=== PATIENT | female | born 1970 | race Caucasian/White ===

== ENCOUNTER 2020-09-24 13:43 | Emergency (ER) | payer BC ==
[2020-09-24] MEDS ORDERED: predniSONE 20 MG Tab PO STA (14:34)
--- NOTE | 2020-09-24 14:34 | EDM.PDOC ---
ED HPI GENERAL MEDICAL PROBLEM - General Chief Complaint: Respiratory Problem Stated Complaint: Dyspnea Time Seen by Provider: 09/24/20 13:50 Source of Information: Reports: Patient History Limitations: Reports: No Limitations - History of Present Illness INITIAL COMMENTS - FREE TEXT/NARRATIVE: Patient presented to the ED because of left rib pain for months which has been worse lately. the pain is pleuritic in type, 5/10. For the past week she also have headache, dry cough, sore throat, N/V/D. there is no fever or chills. She was tested twice for the covid which was negative. 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: Musculoskeletal History: Reports: Back Pain, Chronic Neurological History: Reports: Concussion, Headaches, Chronic, Migraines Psychiatric History: Reports: Anxiety - Past Surgical History HEENT Surgical History: Reports: Tonsillectomy Female Surgical History: Reports: Hysterectomy Musculoskeletal Surgical History: Reports: Other (See Below) Other Musculoskeletal Surgeries/Procedures:: Back surgery x4 Social & Family History - Tobacco Use Tobacco Use Status *Q: Current Some Day Tobacco User Years of Tobacco use: 30 Packs/Tins Daily: 0.1 - Caffeine Use Caffeine Use: Reports: Soda - Recreational Drug Use Recreational Drug Use: No ED ROS GENERAL - Review of Systems Review Of Systems: See Below Constitutional: Reports: No Symptoms HEENT: Reports: No Symptoms Respiratory: Reports: Shortness of Breath, Cough Cardiovascular: Reports: No Symptoms Endocrine: Reports: No Symptoms GI/Abdominal: Reports: No Symptoms : Reports: No Symptoms Musculoskeletal: Reports: No Symptoms Skin: Reports: No Symptoms Neurological: Reports: No Symptoms Psychiatric: Reports: No Symptoms Hematologic/Lymphatic: Reports: No Symptoms ED EXAM, GENERAL - Physical Exam Exam: See Below Exam Limited By: No Limitations General Appearance: Alert, No Apparent Distress Ears: Normal External Exam Nose: Normal Inspection, Normal Mucosa Throat/Mouth: Normal Inspection, Normal Lips, Normal Teeth Head: Atraumatic, Normocephalic Respiratory/Chest: No Respiratory Distress, Lungs Clear, Normal Breath Sounds, Other (tenderness left rib) Cardiovascular: Normal Peripheral Pulses, Regular Rate, Rhythm, No Edema GI/Abdominal: Normal Bowel Sounds, Soft, Non-Tender Extremities: Normal Inspection, Normal Range of Motion Neurological: Alert, Oriented, CN II-XII Intact Course - Vital Signs Text/Narrative:: Labs/EKG/CXR was discussed with patient EKG-NSR Trop-neg D-dimer -neg Prednisone 40 mg PO x1 Last Recorded V/S: Last Vital Signs Temp 36.4 C 09/24/20 13:45 Pulse 75 09/24/20 13:45 Resp 18 09/24/20 13:45 BP 124/90 09/24/20 13:45 Pulse Ox 100 09/24/20 13:45 - Orders/Labs/Meds Orders: Active Orders 24 hr Category Date Time Status EKG Documentation Completion [RC] ASDIRECTED Care 09/24/20 13:59 Active Chest 1V Frontal [CR] Stat Exams 09/24/20 13:58 Taken EKG 12 Lead [EK] Routine Ther 09/24/20 13:58 Ordered Labs: Laboratory Tests 09/24/20 09/24/20 09/24/20 Range/Units 14:24 14:24 14:24 WBC 7.9 (3.0-10.3) x10-3/uL RBC 4.66 (3.60-5.20) x10(6)uL Hgb 14.5 (11.4-15.5) g/dL Hct 43.6 (34.2-48.2) % MCV 93.5 (76.7-100.5) fL MCH 31.0 (23.9-33.9) pg MCHC 33.2 (31.9-34.8) g/dL RDW 13.3 (12.3-16.5) % Plt Count 278 (151-488) x10(3)uL MPV 8.3 (7.1-12.4) fL Neut % (Auto) 52.3 (30.8-76.2) % Lymph % (Auto) 41.3 (18.4-52.1) % [place] % (Auto) 5.6 (4.4-15.7) % Eos % (Auto) 0.5 L (0.6-8.1) % Baso % (Auto) 0.3 (0.2-1.5) % Neut # (Auto) 4.1 (1.5-6.3) x10-3/uL Lymph # (Auto) 3.3 (1.0-4.4) x10-3/uL [place] # (Auto) 0.4 (0.3-1.0) x10-3/uL Eos # (Auto) 0.0 (0.0-0.8) x10-3/uL Baso # (Auto) 0.0 (0.0-0.1) x10-3/uL D-Dimer, Quantitative 0.29 (0.0-0.59) mg/LFEU Sodium 139 (135-145) mmol/L Potassium 4.4 (3.5-5.3) mmol/L Chloride 102 (100-110) mmol/L Carbon Dioxide 30 (21-32) mmol/L BUN 12 (7-18) mg/dL Creatinine 1.1 H (0.55-1.02) mg/dL Est Cr Clr Drug Dosing 61.72 mL/min Estimated GFR (MDRD) 53 L (>60) BUN/Creatinine Ratio 10.9 (9-20) Glucose 100 (80-116) mg/dL Calcium 9.3 (8.6-10.2) mg/dL Total Bilirubin 0.6 (0.1-1.3) mg/dL AST 15 (5-25) IU/L ALT 17 (12-36) U/L Alkaline Phosphatase 81 (56-112) IU/L Troponin I (4.0-60.3) pg/mL NT-Pro-B Natriuret Pep (<=125) pg/mL Total Protein 8.2 H (6.0-8.0) g/dL Albumin 4.1 (3.5-5.2) g/dL Globulin 4.1 g/dL Albumin/Globulin Ratio 1.0 09/24/20 Range/Units 14:24 WBC (3.0-10.3) x10-3/uL RBC (3.60-5.20) x10(6)uL Hgb (11.4-15.5) g/dL Hct (34.2-48.2) % MCV (76.7-100.5) fL MCH (23.9-33.9) pg MCHC (31.9-34.8) g/dL RDW (12.3-16.5) % Plt Count (151-488) x10(3)uL MPV (7.1-12.4) fL Neut % (Auto) (30.8-76.2) % Lymph % (Auto) (18.4-52.1) % [place] % (Auto) (4.4-15.7) % Eos % (Auto) (0.6-8.1) % Baso % (Auto) (0.2-1.5) % Neut # (Auto) (1.5-6.3) x10-3/uL Lymph # (Auto) (1.0-4.4) x10-3/uL [place] # (Auto) (0.3-1.0) x10-3/uL Eos # (Auto) (0.0-0.8) x10-3/uL Baso # (Auto) (0.0-0.1) x10-3/uL D-Dimer, Quantitative (0.0-0.59) mg/LFEU Sodium (135-145) mmol/L Potassium (3.5-5.3) mmol/L Chloride (100-110) mmol/L Carbon Dioxide (21-32) mmol/L BUN (7-18) mg/dL Creatinine (0.55-1.02) mg/dL Est Cr Clr Drug Dosing mL/min Estimated GFR (MDRD) (>60) BUN/Creatinine Ratio (9-20) Glucose (80-116) mg/dL Calcium (8.6-10.2) mg/dL Total Bilirubin (0.1-1.3) mg/dL AST (5-25) IU/L ALT (12-36) U/L Alkaline Phosphatase (56-112) IU/L Troponin I 4.7 (4.0-60.3) pg/mL NT-Pro-B Natriuret Pep 87 (<=125) pg/mL Total Protein (6.0-8.0) g/dL Albumin (3.5-5.2) g/dL Globulin g/dL Albumin/Globulin Ratio Meds: Medications Discontinued Medications Generic Name Dose Route Start Last Admin Trade Name Lopez PRN Reason Stop Dose Admin Prednisone 40 mg 09/24/20 14:34 09/24/20 14:39 Prednisone PO 09/24/20 14:35 40 mg NOW STA Administration Departure - Departure Time of Disposition: 15:20 Disposition: Home, Self-Care 01 Condition: Good Clinical Impression: Pleurisy, Rib pain - Discharge Information Prescriptions: predniSONE [Prednisone] 20 mg PO DAILY #7 tablet traMADol [Ultram] 50 mg PO Q8H PRN #15 tab PRN Reason: Pain Instructions: Nonspecific Chest Pain, Adult, [id number], Pleurisy, [id number] Referrals: PCP,None [Ordering Only Provider] - Forms: ED Department Discharge Sepsis Event Note (ED) - Evaluation Sepsis Screening Result: No Definite Risk - Focused Exam Vital Signs: Vital Signs Temp Pulse Resp BP Pulse Ox Pulse Ox 09/24/20 13:45 36.4 C 75 18 124/90 100 100 - My Orders Last 24 Hours: My Active Orders 09/24/20 13:58 Chest 1V Frontal [CR] Stat EKG 12 Lead [EK] Routine 09/24/20 13:59 EKG Documentation Completion [RC] ASDIRECTED - Assessment/Plan Last 24 Hours: My Active Orders 09/24/20 13:58 Chest 1V Frontal [CR] Stat EKG 12 Lead [EK] Routine 09/24/20 13:59 EKG Documentation Completion [RC] ASDIRECTED
--- NOTE | 2020-09-24 16:23 | CR ---
INDICATION: Dyspnea. CHEST ONE VIEW: An AP upright portable view of the chest was obtained 09/24/20 - no comparisons. Heart is normal in size and shape. The aorta is slightly tortuous. An active infiltrate or effusion was not identified. Interstitial markings are slightly prominent in the lower lung waters, which may be on the basis of fibrosis or other active interstitial disease that should be correlated clinically. No definite pulmonary vascular congestion was seen. MTDD
== END 2020-09-24 15:30 | disposition home or self-care (01) ==
LOC: FB.ED 13:43
DX: R09.1 Pleurisy (principal); F17.210 Nicotine dependence, cigarettes, uncomplicated; Z90.49 Acquired absence of other specified parts of digestive tract; Z90.710 Acquired absence of both cervix and uterus
CPT/HCPCS: 36415; 71045; 80053; 83880; 84484; 85025; 85379; 93005; 99283; 99285-25; J7512